=== PATIENT | female | born 1980 | race Two or more races ===

== ENCOUNTER 2021-03-01 14:15 | Outpatient (CLI) | payer OTHER | END 2021-03-01 14:30 | disposition home or self-care (01) | LOC: PPH VACUNA 14:15 | PROVIDERS: ATTEND Emergency Medicine Pediatric Emergency Medicine | DX: Z23 Encounter for immunization (principal) ==

== ENCOUNTER → 2022-12-08 | Emergency (ER) | payer OTHER ==
[~2022-12-08] VITALS: Ht 157.5 cm; Wt 50.3 kg
[~2022-12-08] MED LIST: CRESTOR10 MG
[2022-12-08 09:25] LABS: URINE APPEARANCE Clear; URINE BILIRRUBIN Negative (NEGATIVE); URINE BLOOD Negative; URINE COLOR Yellow; URINE GLUCOSE Negative (NEGATIVE); URINE LEUKOCYTE Negative; URINE NITRATE Negative; URINE PROTEIN Negative (NEGATIVE); URINE UROBILINOGEN 0.2 E.U./dl
[2022-12-08 09:33] LABS: URINE BACTERIA 133.4 uL (0.0-1933); URINE EPITHELIAL CELLS 8.8 uL (0.0-38.8); URINE WBC 3.5 uL (0.0-23.2)
[2022-12-08 09:37] LABS: URINE RBC 0.2 uL (0.0-20.8)
[2022-12-08 09:43] LABS: HEMATOCRIT 43.3 % (36.0-45.00); HEMOGLOBIN 14.4 g/dL (12.0-15.00); MEAN CELL VOLUME 87.3 fL (80.00-100.00); MEAN CORPUSCULAR HEMOGLOBIN 29.1 pg (27.00-32.0); MEAN CORPUSCULAR HGB CONC 33.3 g/dl (32.0-36.0); PLATELET COUNT 298 K/uL (150-450); RED BLOOD COUNT 4.96 M/uL (4.00-6.00); RED CELL DISTRIBUTION WIDTH 13.4 % (11.5-14.5)
[2022-12-08 10:00] LABS: CALCIUM 9.1 mg/dL (8.5-10.1); CREATININE SERUM 0.75 mg/dL (0.55-1.02); GFR 84.74; POTASSIUM 3.97 mEq/L (3.5-5.1)
== END | disposition home or self-care (01) ==
LOC: ER 08:05
PROVIDERS: Emergency Medicine
DX: K52.89 Other specified noninfective gastroenteritis and colitis (principal)

== ENCOUNTER 2024-06-25 20:50 | Inpatient (IN) | payer OTHER ==
[~2024-06-25] VITALS: Ht 157.5 cm; Wt 49.9 kg
[~2024-06-25 20:50] MED LIST changes: +BARIUM SULFATE 450 ML ORAL.SUSP PO ONE; +FAMOTIDINE/PF 20 MG/2 ML VIAL ONE; +KETOROLAC TROMETHAMINE 30 MG VIAL IV ONE
[2024-06-25] MEDS ORDERED: KETOROLAC TROMETHAMINE 30 MG VIAL ONE (21:17)
[2024-06-25] MEDS ORDERED: CEFTRIAXONE SODIUM 2,000 MG VIAL ONE (21:17)
[2024-06-25] MEDS ORDERED: AZITHROMYCIN 500 MG VIAL IV ONE (21:17)
[2024-06-26] MEDS ORDERED: CEFTRIAXONE SODIUM 2,000 MG VIAL IV SCH (09:00)
[2024-06-26] MEDS ORDERED: AZITHROMYCIN 500 MG VIAL IV SCH (09:00)
[2024-06-26] MEDS ORDERED: CEFTRIAXONE SODIUM 2,000 MG VIAL ONE (09:05)
[2024-06-26] MEDS ORDERED: FAMOTIDINE/PF 20 MG/2 ML VIAL ONE (09:06)
[2024-06-26] MEDS ORDERED: GUAIFEN/DEXTROMETHORPHAN/PE 10 ML BLIST.PACK PO ONE (09:06)
[2024-06-26] MEDS ORDERED: AZITHROMYCIN 500 MG VIAL IV ONE (09:06)
[2024-06-26] MEDS ORDERED: 0.9 % SODIUM CHLORIDE 1,000 ML IV SCH (13:30)
[2024-06-26] MEDS ORDERED: ACETAMINOPHEN 500 MG GEL..CAP PO SCH (14:00)
[2024-06-26] MEDS ORDERED: GUAIFEN/DEXTROMETHORPHAN/PE 10 ML BLIST.PACK PO SCH (14:00)
[2024-06-26] MEDS ORDERED: FAMOTIDINE/PF 20 MG/2 ML VIAL IV SCH (17:00)
[2024-06-26] MEDS ORDERED: ROSUVASTATIN CALCIUM 10 MG TABLET PO SCH (17:00)
[2024-06-26 18:04] VITALS: BP 106/66; O2SAT 97
[2024-06-27 02:36] VITALS: BP 103/64; O2SAT 99
[2024-06-27 06:24] LABS: HEMATOCRIT 35.5 % (36.0-45.00); HEMOGLOBIN 12.2 g/dL (12.0-15.00); MEAN CELL VOLUME 87.6 fL (80.00-100.00); MEAN CORPUSCULAR HEMOGLOBIN 30.1 pg (27.00-32.0); MEAN CORPUSCULAR HGB CONC 34.3 g/dl (32.0-36.0); PLATELET COUNT 257 K/uL (150-450); RED BLOOD COUNT 4.06 M/uL (4.00-6.00); RED CELL DISTRIBUTION WIDTH 13.6 % (11.5-14.5)
[2024-06-27 07:18] LABS: CALCIUM 8.6 mg/dL (8.5-10.1); CREATININE SERUM 0.56 mg/dL (0.55-1.02); GFR 118.15; POTASSIUM 4.38 mEq/L (3.5-5.1)
[2024-06-27] MEDS ORDERED: AZITHROMYCIN 500 MG VIAL IV ONE (08:10)
[2024-06-27] MEDS ORDERED: ENOXAPARIN SODIUM 40 MG/0.4 ML SYRINGE SUBCUTANEO SCH (09:00)
[2024-06-27 09:43] VITALS: BP 115/64; O2SAT 96
== END 2024-06-27 12:23 | disposition home or self-care (01) | DRG 194 ==
LOC: MEDI 20:50
PROVIDERS: ADMIT Student in an Organized Health Care Education/Training Program; ATTEND Student in an Organized Health Care Education/Training Program
PROC: BW21ZZZ Computerized Tomography (CT Scan) of Abdomen and Pelvis (ICD-10-PCS; principal; 2024-06-25)
PROC: BW24YZZ Computerized Tomography (CT Scan) of Chest and Abdomen using Other Contrast (ICD-10-PCS; 2024-06-25)
DX: J18.9 Pneumonia, unspecified organism (principal); J90 Pleural effusion, not elsewhere classified; R04.2 Hemoptysis; K21.9 Gastro-esophageal reflux disease without esophagitis; G43.809 Other migraine, not intractable, without status migrainosus